=== PATIENT | female | born 1970 | race Caucasian/White ===

== ENCOUNTER → 2023-03-05 | Outpatient (CLI) | payer SELFPAY ==
--- NOTE | 2023-03-05 14:00 | Diagnostic Imaging Report ---
PROCEDURE: MR imaging cervical spine without contrast. TECHNIQUE: Multiplanar, multisequence MR imaging of the cervical spine was performed without contrast. INDICATION: Chronic neck pain Comparison: None. FINDINGS: ACDF at C5-C6. Straightening of the cervical lordosis. No acute fracture. The intervertebral discs are normal. No marrow replacing process to suggest malignancy.. The spinal cord is normal in signal intensity. On the limited views of the cranial cavity and brain, the cerebellum and tabitha have normal morphology and signal characteristics. No Chiari malformation. No soft tissue abnormality. Normal signal voids are present in the vertebral arteries. C2-3: No significant spinal canal stenosis or neural foraminal narrowing. C3-4: No significant spinal canal stenosis or neural foraminal narrowing. C4-5: Disc osteophyte complex. Uncovertebral facet arthropathy. Mild to moderate spinal canal narrowing. Moderate left and mild right neural foraminal narrowing. C5-6: ACDF. No significant spinal canal stenosis or neural foraminal narrowing. C6-7: Disc osteophyte complex. Uncovertebral facet arthropathy. Mild to moderate spinal canal narrowing. Moderate left and mild right neural foraminal narrowing.. C7-T1: No significant spinal canal stenosis or neural foraminal narrowing. IMPRESSION: Postsurgical changes from prior C5-C6 ACDF. Degenerative changes most notable at C4-C5 and C6-C7 with mild to moderate spinal canal narrowing. Dictated by: Dictated on workstation # [id number]
== END ==
LOC: RAD 10:22
PROVIDERS: ATTEND Nurse Practitioner
DX: Z09 Encounter for follow-up examination after completed treatment for conditions other than malignant neoplasm (principal); Z96.652 Presence of left artificial knee joint
CPT/HCPCS: 72141